=== PATIENT | male | born 1960 | race Caucasian/White ===

== ENCOUNTER 2017-01-27 22:04 | Emergency (ER) | payer OTHER ==
[~2017-01-27] VITALS: Ht 185.4 cm; Wt 96.9 kg
[2017-01-27] MEDS ORDERED: ZANAFLEX2 MG PO (23:23)
[2017-01-27] MEDS ORDERED: NORCO 5/3251 TABLET PO (23:23)
[2017-01-27] MEDS ORDERED: LIDODERM 5% P1 PATCH TD (23:23)
[2017-01-28 01:03] VITALS: BP 155/76
== END 2017-01-28 01:08 | disposition home or self-care (01) ==
LOC: EME 22:04
DX: S39.012A Strain of muscle, fascia and tendon of lower back, initial encounter (principal); X50.0XXA Overexertion from strenuous movement or load, initial encounter; Y93.89 Activity, other specified; F17.200 Nicotine dependence, unspecified, uncomplicated
CPT/HCPCS: 99281; 99283

== ENCOUNTER 2017-04-10 07:03 | Emergency (ER) | payer OTHER ==
[~2017-04-10] VITALS: Ht 185.4 cm; Wt 96.5 kg
[~2017-04-10 07:03] MED LIST: LIDODERM 5% P1 PATCH TD; NORCO 5/3251 TABLET PO; ZANAFLEX2 MG PO
[2017-04-10 08:18] LABS: HEMATOCRIT 46.4 % (38.0-50.0); MCHC 33.8 G/DL (30.0-36.0); MCV 94.5 FL (86-99); MEAN PLAT.VOLUME 10.1 uM^3 (9.0-12.4); PLATELET COUNT 191 K/uL (156-360); RBC DIS.WIDTH-CV 12.8 % (11.8-14.6); RBC DIS.WIDTH-SD 44.4 % (39-53); RED BLOOD COUNT 4.91 M/uL (4.00-5.50); WHITE BLOOD COUNT 9.4 K/uL (4.1-10.2)
[2017-04-10 08:30] LABS: CHLORIDE 108 mEq/L (99-109); POTASSIUM 4.9 mEq/L (3.7-5.4); SODIUM 137 mEq/L (136-147)
[2017-04-10 08:32] LABS: GLUCOSE 106 mg/dL (70-99)
[2017-04-10 08:33] LABS: ANION GAP 4 MEQ/L (2-14)
[2017-04-10 08:34] LABS: TOTAL BILIRUBIN 0.4 mg/dL (0.0-1.0)
[2017-04-10 08:36] LABS: ALKALINE PHOSPHATASE 65 IU/L (3-129); GFR ESTIMATE (CALCULATED) > 59 mL/min/
[2017-04-10 08:37] LABS: UREA NITROGEN (BUN) 9 mg/dL (9-23)
[2017-04-10 08:41] LABS: TROP-I INTERPRETATION NEGATIVE; TROPONIN-I < 0.01 ng/mL (0.0-0.30)
[2017-04-10 10:23] VITALS: BP 135/84
== END 2017-04-10 10:25 | disposition home or self-care (01) ==
LOC: EME 07:03
PROVIDERS: Nurse Practitioner Family
DX: R51 Headache (principal); R42 Dizziness and giddiness; H53.8 Other visual disturbances; Z71.6 Tobacco abuse counseling; F17.210 Nicotine dependence, cigarettes, uncomplicated; J44.9 Chronic obstructive pulmonary disease, unspecified; I10 Essential (primary) hypertension; E78.5 Hyperlipidemia, unspecified; Z95.5 Presence of coronary angioplasty implant and graft
CPT/HCPCS: 70450; 71020; 80053; 84484; 85027; 93005; 99281; 99284